=== PATIENT | female | born 1950 | race Caucasian/White ===

== ENCOUNTER 2016-12-28 13:57 | Emergency (ER) | payer MEDICARE, OTHER ==
[2016-12-28 14:21] LABS: BASOPHIL 0.5 % (0-2); EOSINOPHIL 2.4 % (0-7); HCT 41.4 % (37.0-47.0); HGB 13.8 g/dl (12.5-16.0); LYMPHOCYTE 30.9 % (15-48); MCH 29.5 pg (25.0-31.0); MCHC 33.3 g/dL (32.0-36.0); MCV 88.5 fL (78.0-100.0); MONOCYTE 6.8 % (0-12); MPV 10.2 fL (6.0-9.5); NEUTROPHIL 59.4 % (41-80); PLT 293 K/uL (150-400); RBC 4.68 M/uL (4.20-5.40); RDW 13.1 % (11.5-14.0); WBC 10.5 K/uL (4.0-10.5)
[2016-12-28 14:27] LABS: INR 0.99 (0.9-1.2); PROTHROMBIN TIME 12.7 SECONDS (11.7-14.0); PTT 24.1 SECONDS (23.2-31.4)
[2016-12-28 14:28] LABS: D-DIMER < 0.27 ug/mLFEU (0.00-0.41)
[2016-12-28 14:32] LABS: ALBUMIN 4.4 g/dL (3.4-4.8); BILIRUBIN - TOTAL 0.4 mg/dL (0.1-1.0); CREATININE 0.9 mg/dL (0.5-1.0); GLOBULIN (CALCULATION) 3.2 g/dL (2.2-4.2); POTASSIUM 3.9 mmol/L (3.5-5.1); TOTAL PROTEIN 7.6 g/dL (6.4-8.3)
[2016-12-28 14:33] LABS: CKMB 2.02 ng/mL (0.97-4.94); TROPONIN T < 0.010 ng/mL
== END 2016-12-28 17:18 | disposition home or self-care (01) ==
LOC: FER 13:57
PROVIDERS: Emergency Medicine
DX: K20.9 Esophagitis, unspecified (principal); I10 Essential (primary) hypertension; Z87.19 Personal history of other diseases of the digestive system
CPT/HCPCS: 36415; 71010; 80053; 82550; 82553; 83690; 84484; 85025; 85379; 85610; 85730; 93005; J2270; J2405

== ENCOUNTER → 2020-11-15 | Day surgery (SDC) | payer MEDICARE, OTHER ==
[~2020-11-15] MED LIST: AMARYL2 MG PO; AMLODIPINE BESYL5 MG PO; CARAFATE1 GM PO; CHLORTHALIDONE25 MG PO; ESOMEPRAZOLE MA20 MG PO; EVISTA60 MG PO; FEOSOL325 MG PO; LIPITOR20 MG PO; LISINOPRIL 20MG20 MG PO; METFORMIN HCL500 M1 PO; METROGEL 0.75%45 GM TOP; NORCO 5-325 TA1 EACH PO; ONDANSETRON ODT4 MG SL; ONDANSETRON ODT8 MG PO; PROTONIX 40MG T40 MG PO; SYNTHROID50 MCG PO; TAGAMET HB200 MG PO; WELLBUTRIN100 MG PO; ZYRTEC10 M3 PO
[2020-11-15 08:47] LABS: HCT 31.8 % (37.0-47.0); HGB 10.4 g/dl (12.5-16.0); MCH 30.1 pg (25.0-31.0); MCHC 32.7 g/dL (32.0-36.0); MCV 92.2 fL (78.0-100.0); MPV 10.3 fL (6.0-9.5); RBC 3.45 M/uL (4.20-5.40); RDW 13.3 % (11.5-14.0); WBC 6.3 K/uL (4.0-10.5)
[2020-11-15 09:06] LABS: ALBUMIN 3.1 g/dL (3.4-5.0); BILIRUBIN - TOTAL 0.3 mg/dL (0.2-1.0); BUN/CREAT RATIO (CALC) 12.5 RATIO; CREATININE 1.2 mg/dL (0.51-0.95); GLOBULIN (CALCULATION) 3.3 g/dL; POTASSIUM 3.5 mmol/L (3.5-5.1); TOTAL PROTEIN 6.4 g/dL (6.4-8.2)
== END | disposition home or self-care (01) ==
LOC: FAS 07:32
PROVIDERS: Surgery
DX: K81.1 Chronic cholecystitis (principal); K66.0 Peritoneal adhesions (postprocedural) (postinfection); K21.9 Gastro-esophageal reflux disease without esophagitis; E03.9 Hypothyroidism, unspecified; E11.9 Type 2 diabetes mellitus without complications; I10 Essential (primary) hypertension; F32.9 Major depressive disorder, single episode, unspecified; E78.00 Pure hypercholesterolemia, unspecified; G47.33 Obstructive sleep apnea (adult) (pediatric); Z80.3 Family history of malignant neoplasm of breast; Z79.810 Long term (current) use of selective estrogen receptor modulators (SERMs); Z79.84 Long term (current) use of oral hypoglycemic drugs; Z79.899 Other long term (current) drug therapy; Z91.048 Other nonmedicinal substance allergy status; Z98.84 Bariatric surgery status; R11.2 Nausea with vomiting, unspecified
CPT/HCPCS: 36415; 74300; 80053; C1758; J1885; J2270; J2405; J2704; J2710; J3010; J7120; Q9967